=== PATIENT | male | born 1960 | race Caucasian/White ===

== ENCOUNTER 2022-07-20 20:17 | Outpatient (CLI) | payer OTHER, SELFPAY ==
--- NOTE | 2022-07-28 12:32 | W.PM.SLEEP ---
Sleep Study Details Details Interpreting Provider: Shane Howe MD Date of Sleep Study: 07/20/22 Sleep Study Details: STUDY TYPE:? Hospital ? BMI:? 27.3 ORDERING PROVIDER:? marii INDICATION: Concerns about sleep apnea ? SLEEP SUMMARY:? 405.5 minute sleep time, efficiency 83.1, arousal index 7.7 RESPIRATORY SUMMARY:? Mean oxygen awake 93 asleep 93 minimum 89 AHI 2.8, RDI 5.2 Supine AHI 3.9, supine RDI 6.7 Nonsupine AHI 1.6 nonsupine RDI 3.5 PERIODIC LIMB MOVEMENTS OF SLEEP:? None CARDIAC:? Awake 69 asleep 65 no arrhythmias noted IMPRESSION:? The overall AHI is within normal limits at 2.8 however the RDI is mildly elevated 5.2. This could be construed as mild obstructive sleep apnea or upper airway resistance syndrome. There is slight worsening of events in the supine position. If the patient is symptomatic treatment options could consist of either AutoSet CPAP, positional therapy with avoidance of supine sleep or dental appliance. RECOMMENDATION: See above impression.
== END 2022-07-20 20:18 | disposition home or self-care (01) ==
LOC: SLEEP 20:18
PROVIDERS: PCP Family Medicine; Visit Provider Family Medicine
DX: G47.33 Obstructive sleep apnea (adult) (pediatric) (principal)
CPT/HCPCS: 95810

== ENCOUNTER 2023-04-22 13:47 | Outpatient (CLI) | payer OTHER, SELFPAY | END 2023-04-22 13:48 | disposition home or self-care (01) | LOC: NFLDREF 04-23 13:12 | PROVIDERS: PCP Family Medicine; Referring Provider Family Medicine; Visit Provider Family Medicine | DX: Z13.9 Encounter for screening, unspecified (principal); Z13.220 Encounter for screening for lipoid disorders; Z13.1 Encounter for screening for diabetes mellitus; Z12.5 Encounter for screening for malignant neoplasm of prostate | CPT/HCPCS: 80061; 82947; 84153 ==

== ENCOUNTER 2023-05-24 07:49 | Outpatient (CLI) | payer OTHER, SELFPAY ==
--- NOTE | 2023-05-24 08:25 | W.ANESCHARGE ---
Anesthesia Charges Start Date/Time Anesthesia Start Date: 05/24/23 Anesthesia Start Time: 08:12 Stop Date/Time Anesthesia Stop Date: 05/24/23 Anesthesia Stop Time: 08:36
--- NOTE | 2023-05-24 08:43 | W.ANESCHARGE ---
Anesthesia Charges Start Date/Time Anesthesia Start Date: 05/24/23 Anesthesia Start Time: 08:12 Stop Date/Time Anesthesia Stop Date: 05/24/23 Anesthesia Stop Time: 08:36
== END 2023-05-24 07:50 | disposition home or self-care (01) ==
LOC: OP CLINIC 07:51
PROVIDERS: PCP Family Medicine; Visit Provider Internal Medicine
DX: Z12.11 Encounter for screening for malignant neoplasm of colon (principal); Z86.010 Personal history of colon polyps; Z98.0 Intestinal bypass and anastomosis status
CPT/HCPCS: 00811; 00812; 45378; J2704

== ENCOUNTER 2024-10-25 08:17 | Outpatient (CLI) | payer OTHER, SELFPAY | END 2024-10-25 08:18 | disposition home or self-care (01) | LOC: NFLDREF 10-26 19:45 | PROVIDERS: PCP Family Medicine; Referring Provider Family Medicine; Visit Provider Family Medicine | DX: E78.5 Hyperlipidemia, unspecified (principal); Z12.5 Encounter for screening for malignant neoplasm of prostate | CPT/HCPCS: 80053; 80061; G0103 ==